=== PATIENT | male | born 1980 | race Caucasian/White ===

== ENCOUNTER 2021-07-10 12:44 | Emergency (ER) | payer BC ==
[~2021-07-10] VITALS: Ht 175.3 cm; Wt 68.0 kg
[2021-07-10 12:45] VITALS: BP 119/81
[2021-07-10] MEDS ORDERED: DOXYCYCLINE 10100 MG PO (13:04)
[2021-07-10] MEDS ORDERED: BENADRYL25 MG PO (13:04)
[2021-07-10] MEDS ORDERED: PREDNISONE 20 M20 MG PO (13:04)
== END 2021-07-10 13:08 | disposition home or self-care (01) ==
LOC: ER 12:44
DX: T63.461A Toxic effect of venom of wasps, accidental (unintentional), initial encounter (principal); T78.49XA Other allergy, initial encounter; F17.210 Nicotine dependence, cigarettes, uncomplicated; Z98.890 Other specified postprocedural states; Z88.0 Allergy status to penicillin; Z88.2 Allergy status to sulfonamides; Z88.8 Allergy status to other drugs, medicaments and biological substances; Y92.89 Other specified places as the place of occurrence of the external cause